=== PATIENT | male | born 1985 | race Caucasian/White ===

== ENCOUNTER 2021-03-25 15:21 | Emergency (ER) | payer OTHER ==
[~2021-03-25] VITALS: Ht 180.3 cm; Wt 83.9 kg
[2021-03-25 16:03] VITALS: BP 123/54
== END 2021-03-25 16:06 | disposition home or self-care (01) ==
LOC: M.ERS 15:21
DX: U07.1 COVID-19 (principal); R51.9 Headache, unspecified; R05 Cough; F32.9 Major depressive disorder, single episode, unspecified